=== PATIENT | male | born 1965 | race Caucasian/White ===

== ENCOUNTER 2018-04-05 10:22 | Inpatient (IN) | payer MEDICAID ==
[~2018-04-05] VITALS: Ht 172.7 cm; Wt 77.6 kg
[2018-04-05 11:14] LABS: PLATELET COUNT 140 x10^3mcL (130-400)
[2018-04-05 11:20] LABS: RED CELL DISTRIBUTION WIDTH 16.2 % (11.5-14.5)
[2018-04-05 11:21] LABS: CALCIUM 9.4 mg/dL (8.5-10.1); CARBON DIOXIDE 31.3 mmol/L (21-32); CREATININE SERUM 2.5 mg/dL (0.7-1.3); POTASSIUM SERUM 3.6 mmol/L (3.5-5.1)
[2018-04-05 11:26] LABS: BILIRUBIN TOTAL 0.6 mg/dL (0.20-1.00); TOTAL PROTEIN, SERUM 7.1 g/dL (6.4-8.2)
[2018-04-05 11:28] LABS: ALBUMIN 3.1 g/dL (3.4-5.0)
[2018-04-05] MEDS ORDERED: LACTULOSE10 GM/152 PO (11:51)
[2018-04-05] MEDS ORDERED: VIT C-ROSE HIP500 MG PO (11:52)
[2018-04-05] MEDS ORDERED: NEPHRO-VITE RX1 TAB PO (11:52)
[2018-04-05] MEDS ORDERED: ABILIFY10 M2 PO (11:52)
[2018-04-05] MEDS ORDERED: [UNRECOGNIZED DRUG - OTHER] PO (11:52)
[2018-04-05] MEDS ORDERED: COLACE100 MG PO (11:52)
[2018-04-05] MEDS ORDERED: ATIVAN1 MG PO (11:53)
[2018-04-05] MEDS ORDERED: CALCIUM ACETAT667 M2 PO (11:53)
[2018-04-05] MEDS ORDERED: LIPI20 PO (11:53)
[2018-04-05] MEDS ORDERED: PROA PO (11:53)
[2018-04-05] MEDS ORDERED: TRAMADOL HCL50 MG PO (11:54)
[2018-04-05] MEDS ORDERED: SENNA8.6 M2 PO (11:54)
[2018-04-05] MEDS ORDERED: HUMALOG100 UNIT/1 SQ (11:54)
[2018-04-05] MEDS ORDERED: ACETAMINOPHEN325 M3 PO (15:12)
[2018-04-05 15:15] VITALS: BP 110/65
[2018-04-05 17:10] VITALS: BP 96/57
[2018-04-05 20:30] VITALS: BP 89/57
[2018-04-06 00:18] LABS: microscopic required? YES; urine erythrocyte 1+ (NEGATIVE)
[2018-04-06 05:12] VITALS: BP 115/68
[2018-04-06 08:12] VITALS: BP 100/67
[2018-04-06 14:28] LABS: CALCIUM 9.2 mg/dL (8.5-10.1); CARBON DIOXIDE 33.9 mmol/L (21-32)
[2018-04-06 14:30] LABS: POTASSIUM SERUM 2.8 mmol/L (3.5-5.1)
[2018-04-06 14:35] LABS: BASOPHIL % 1.1 % (0-2); PLATELET COUNT 130 x10^3mcL (130-400)
[2018-04-06 14:45] LABS: RED CELL DISTRIBUTION WIDTH 15.9 % (11.5-14.5)
[2018-04-06 16:49] VITALS: BP 106/67
[2018-04-06 20:14] VITALS: BP 93/56
[2018-04-07 05:18] VITALS: BP 112/78
[2018-04-07 08:02] VITALS: BP 123/79
[2018-04-07 09:31] LABS: CALCIUM 9.2 mg/dL (8.5-10.1); CARBON DIOXIDE 30.5 mmol/L (21-32); CREATININE SERUM 1.7 mg/dL (0.7-1.3); POTASSIUM SERUM 3.1 mmol/L (3.5-5.1)
[2018-04-07 09:36] LABS: PLATELET COUNT 126 x10^3mcL (130-400); RED CELL DISTRIBUTION WIDTH 16.3 % (11.5-14.5)
[2018-04-07 10:53] LABS: BAND NEUTROPHIL 0 % (0-10); BASOPHIL 0 % (0-2); MONOCYTE 8 % (0-7); SEGMENTED NEUTROPHILS 35 % (37-75)
[2018-04-07 10:54] LABS: PLATELET MORPHOLOGY PLATELETS NORMAL
[2018-04-07 10:55] LABS: rbc morphology (normal/abnorm) ABNORMAL (NORMAL)
[2018-04-07 13:00] VITALS: Ht 172.7 cm; Wt 77.6 kg
== END 2018-04-07 18:01 | DRG 197 ==
LOC: ED 10:22 → MU 12:22
PROVIDERS: Internal Medicine; Internal Medicine Nephrology; Specialist
DX: I82.B12 Acute embolism and thrombosis of left subclavian vein (principal); G04.91 Myelitis, unspecified; E11.22 Type 2 diabetes mellitus with diabetic chronic kidney disease; I12.0 Hypertensive chronic kidney disease with stage 5 chronic kidney disease or end stage renal disease; E44.1 Mild protein-calorie malnutrition; N18.6 End stage renal disease; F41.9 Anxiety disorder, unspecified; N39.0 Urinary tract infection, site not specified; D63.1 Anemia in chronic kidney disease; Z93.3 Colostomy status; Z99.2 Dependence on renal dialysis; Z68.27 Body mass index [BMI] 27.0-27.9, adult; Z91.15 Patient's noncompliance with renal dialysis
CPT/HCPCS: 82962; 87804; A4371; J0696; J1644; J1650; J3490; J7030; Q0092; Q0163